=== PATIENT | female | born 1990 | race Caucasian/White ===

== ENCOUNTER 2020-08-24 10:51 | Emergency (ER) | payer OTHER, SELFPAY ==
--- NOTE | ~2020-08-24 | CT_ITS ---
EXAMINATION: CT ABDOMEN AND PELVIS WITHOUT CONTRAST CLINICAL INFORMATION: Abdominal pain. History of gastric sleeve surgery and abdominal wall hernia repair with mesh. COMPARISON: Previous CT of the abdomen and pelvis September 2019 TECHNIQUE: Multidetector volumetric imaging was performed from the superior aspect of the liver through the pubic symphysis. Sagittal and coronal reformatted images were obtained on the technologist's workstation. This CT examination was performed using dose optimization techniques as appropriate, variously including the following: *Automated exposure control *Adjustment of mA and/or kV according to patient size (this includes techniques or standardized protocols for targeted exams where dose is matched to indication/reason for exam; i.e. extremities or head) *Use of iterative reconstruction technique DLP: 1021 mGy-cm FINDINGS: LUNG BASES: The visualized lung bases are unremarkable. LIVER, GALLBLADDER, AND BILIARY TREE: The liver is normal in size, shape, and attenuation. No focal hepatic lesion or biliary ductal dilatation is present. The gallbladder has been removed. PANCREAS: The pancreas is normal-appearing. There is mild fat stranding seen in the root of the small bowel mesentery. Clinical correlation to exclude mild pancreatitis recommended. SPLEEN: Unremarkable. ADRENAL GLANDS: Unremarkable. KIDNEYS AND URETERS: The kidneys are normal in size, shape, and attenuation. No hydronephrosis, hydroureter, or calculi seen. No perinephric stranding. BLADDER: Unremarkable. GASTROINTESTINAL TRACT: The changes from gastric sleeve procedure. There is a mild wall thickening of the right colon and proximal transverse colon. This may be due to underdistention. The small and large bowel are unremarkable. The appendix is unremarkable. ABDOMINAL WALL: There are postsurgical changes following abdominal wall hernia repair with mesh. There is a small amount of fluid adjacent to the mesh similar to previous exam September 2019. There is some LYMPH NODES: Normal. VASCULAR: Unremarkable. PELVIC VISCERA: Unremarkable. OSSEOUS STRUCTURES: There is degenerative disc disease at L5-S1. CT/CT abdomen pelvis wo con IMPRESSION: Postsurgical changes from gastric sleeve procedure. Mild wall thickening of the right colon and proximal transverse colon, question artifactual due to underdistention as opposed to representing mild colitis. Mild fat stranding at the root of the small bowel mesentery. Clinical correlation to exclude to exclude mild pancreatitis. The pancreas is otherwise normal appearing. Abdominal wall hernia repair with mesh. Small amount of fluid adjacent to the mesh similar to 2020 exam.
[2020-08-24 11:25] VITALS: BP 156/83; PULSE 64; RESP 18; TEMP 36.8; O2SAT 100; BMI 35.5
--- NOTE | 2020-08-24 12:35 | ED_ITS ---
HPI - General Adult General Chief complaint: Abdominal Pain Stated complaint: ABD PAIN Time Seen by Provider: 08/24/20 11:52 Source: patient Mode of arrival: ambulatory Limitations: no limitations History of Present Illness HPI narrative: 30 y/o female with history of morbid obesity s/p gastric sleeve in January [address] [facility] in [place] who presents to the ED today with multiple complaints. She reports chronic abdominal pain since the surgery, worse at night, cramping in nature. He bowel habits have been irregular, constipated and then loose for the last 1 month. No nausea or vomiting but she reports a very poor appetite. She has no fever, chills, sick contacts, urinary symptoms. She has no new medications. She has some hair loss, low energy and feels very weak. She has 6 children and does not have the energy to keep up with them because she is not eating well. She has not seen her Bariatric Surgeon in over 1 year due to the pandemic. MD complaint: chronic abdominal pain Onset (ago): month(s) Location: abdomen Radiation: non-radiation Severity: moderate Quality: stabbing Pain Consistency: intermittent Relieving factors: none Exacerbating factors: eating Associated symptoms: loss of appetite, malaise and weakness Treatments prior to arrival: none Related Data Previous Rx's Medication Instructions Recorded ciprofloxacin HCl 500 mg PO BID #14 tab 08/24/20 dicyclomine 20 mg PO TID PRN #10 tab 08/24/20 metronidazole [Flagyl] 500 mg PO Q12H #14 tab 08/24/20 Allergies Allergy/AdvReac Type Severity Reaction Status Date / Time Penicillins [PCN] Allergy Mild RASH Unverified 12/15/19 19:52 Review of Systems Review of Systems: Constitutional: No Fever, No Chills ENT/Mouth: No sore throat, No Rhinorrhea, No Swallowing Difficulty Cardiovascular: No Chest Pain, No SOB Respiratory: No Cough, No Sputum Gastrointestinal: No Nausea, No Vomiting, + Diarrhea, + abdominal Pain, No Hematochezia, No Melena Genitourinary: No Dysuria, No Urinary Frequency, No Hematuria Musculoskeletal: No joint pain, No Myalgias Skin: No Skin Lesions, No rash Neuro: + Weakness, No Numbness, No Dizziness, No Headache Psych: + Anxiety/Panic, + Depression Heme/Lymph: No Bruising, No Lymphadenopathy Endocrine: No Polyuria, No Polydipsia [facility] Past Medical History Attestation statement: The following information was validated with the patient. Social History Social History Advance Directives: Yes Advance Directives Information Provided: Yes Advance Directives on File: No Physical Exam Vital Signs: Vital Signs: Last Vital Signs Temp 98.2 F 08/24/20 11:25 Pulse 50 08/24/20 13:32 Resp 18 08/24/20 13:32 BP 138/69 08/24/20 13:32 Pulse Ox 100 08/24/20 13:32 Body Mass Index 35.5 Appearance: Alert. Oriented X3. No acute distress. Eyes: Pupils equal, round and reactive to light. ENT: Pharynx normal. Neck: Normal inspection. Neck supple. CVS: Normal heart rate and rhythm. Pulses normal. Respiratory: No respiratory distress. Breath sounds normal. Abdomen: Moribdly obese, Soft with mild diffuse tenderness, no reboudn or guarding, no masses, no hernias.. +BS x4 Skin: Skin warm and dry. Normal skin color. Normal skin turgor. No rashes. Extremities: No lower extremity edema. Neuro: Oriented X 3. No motor deficit. No sensory deficit. Course Course Course Narrative: 30 y/o female s/p gastric sleeve 1.5 years ago presenting with acute on chronic abdominal pain for the last 1 month. Will get labs and CT scan for further evaluation. Reevaluation(s) Reevaluation #1: Labs and UA are unremarkable. CT scan showing possible mild colitis. Will start on antibiotic therapy and refer to GI. Encouraged to f/u with her Bariatric Surgery and referral given to GI. She is tolerating PO and stable for d/c home. Medical Decision Making Lab Data Result diagrams: 08/24/20 12:30 08/24/20 12:29 Labs: Lab Results 08/24/20 08/24/20 08/24/20 Range/Units 12:29 12:29 12:29 WBC (4.8-10.8) X10*3/uL RBC (4.20-5.50) X10*6/uL Hgb (12.0-16.0) g/dl Hct (37-47) % MCV (80-98) fL MCH (27.0-33.0) pg MCHC (31.0-35.0) g/dl RDW (11.0-16.0) % Plt Count (160-400) X10*3/uL MPV (9.4-12.3) fL Immature Gran % (Auto) (0.0-0.4) % Neut % (Auto) (45-73) % Lymph % (Auto) (20-40) % [place] % (Auto) (2-11) % Eos % (Auto) (0-4) % Baso % (Auto) (0-2) % Lymph # (Auto) (1.2-4.9) X10*3/uL [place] # (Auto) (0.1-1.2) X10*3/uL Eos # (Auto) (0.0-0.4) X10*3/uL Baso # (Auto) (0.0-0.2) X10*3/uL Abs Immat Gran (auto) (0.00-0.03) X10*3/uL Absolute Neuts (auto) (2.0-8.3) X10*3/uL Absolute Nucleated RBC (0.0-0.012) X10*3/uL Nucleated RBC % (auto) (0.0-0.2) /100WBC Hold Blue Top Sodium 140 (135-145) mmol/L Potassium 4.4 (3.3-5.1) mmol/L Chloride 105 (96-108) mmol/L Carbon Dioxide 27 (22-29) mmol/L Anion Gap 12 (12-20) BUN 12 (9-16) mg/dL Creatinine 0.73 (0.5-1.4) mg/dL Estim Creat Clear Calc 141.0 Estimated GFR > 60 Random Glucose 82 (60-115) mg/dL Calcium 9.0 (8.4-10.2) mg/dL Magnesium 2.1 (1.6-2.6) mg/dL Total Bilirubin 0.4 (0.0-1.0) mg/dL Direct Bilirubin 0.2 (0.0-0.5) mg/dL AST 16 (5-31) U/L ALT 17 (0-31) U/L Alkaline Phosphatase 30 L (39-117) U/L Total Protein 7.4 (6.5-8.0) g/dL Albumin 4.2 (3.5-5.0) g/dL Lipase 19 (8-78) U/L TSH 2.44 (0.32-4.0) uIU/mL Urine Color YELLOW Urine Appearance HAZY Urine pH 7.0 (5.0-8.0) Ur Specific [place] 1.010 (1.005-1.025) Urine Protein NEG (NEG-TRACE) MG/DL Urine Glucose (UA) NEG (NEG) MG/DL Urine Ketones NEG (NEG) MG/DL Urine Blood NEG (NEG) Urine Nitrite NEG (NEG) Ur Leukocyte Esterase NEG (NEG) Urine Test NEGATIVE (NEGATIVE) 08/24/20 08/24/20 Range/Units 12:30 12:30 WBC 5.1 (4.8-10.8) X10*3/uL RBC 4.56 (4.20-5.50) X10*6/uL Hgb 12.1 (12.0-16.0) g/dl Hct 37.6 (37-47) % MCV 82.5 (80-98) fL MCH 26.5 L (27.0-33.0) pg MCHC 32.2 (31.0-35.0) g/dl RDW 13.6 (11.0-16.0) % Plt Count 191 (160-400) X10*3/uL MPV 9.7 (9.4-12.3) fL Immature Gran % (Auto) 0.2 (0.0-0.4) % Neut % (Auto) 67.6 (45-73) % Lymph % (Auto) 24.5 (20-40) % [place] % (Auto) 5.7 (2-11) % Eos % (Auto) 1.4 (0-4) % Baso % (Auto) 0.6 (0-2) % Lymph # (Auto) 1.3 (1.2-4.9) X10*3/uL [place] # (Auto) 0.3 (0.1-1.2) X10*3/uL Eos # (Auto) 0.1 (0.0-0.4) X10*3/uL Baso # (Auto) 0.0 (0.0-0.2) X10*3/uL Abs Immat Gran (auto) 0.01 (0.00-0.03) X10*3/uL Absolute Neuts (auto) 3.5 (2.0-8.3) X10*3/uL Absolute Nucleated RBC 0.000 (0.0-0.012) X10*3/uL Nucleated RBC % (auto) 0.0 (0.0-0.2) /100WBC Hold Blue Top SEE NOTE Sodium (135-145) mmol/L Potassium (3.3-5.1) mmol/L Chloride (96-108) mmol/L Carbon Dioxide (22-29) mmol/L Anion Gap (12-20) BUN (9-16) mg/dL Creatinine (0.5-1.4) mg/dL Estim Creat Clear Calc Estimated GFR Random Glucose (60-115) mg/dL Calcium (8.4-10.2) mg/dL Magnesium (1.6-2.6) mg/dL Total Bilirubin (0.0-1.0) mg/dL Direct Bilirubin (0.0-0.5) mg/dL AST (5-31) U/L ALT (0-31) U/L Alkaline Phosphatase (39-117) U/L Total Protein (6.5-8.0) g/dL Albumin (3.5-5.0) g/dL Lipase (8-78) U/L TSH (0.32-4.0) uIU/mL Urine Color Urine Appearance Urine pH (5.0-8.0) Ur Specific [place] (1.005-1.025) Urine Protein (NEG-TRACE) MG/DL Urine Glucose (UA) (NEG) MG/DL Urine Ketones (NEG) MG/DL Urine Blood (NEG) Urine Nitrite (NEG) Ur Leukocyte Esterase (NEG) Urine Test (NEGATIVE) Discharge Plan Discharge Clinical Impression: Colitis Abdominal pain Qualifiers: Abdominal location: generalized Qualified Code(s): R10.84 - Generalized abdominal pain Patient Disposition: Home, Self-Care Instructions: Colitis (ED), Nutrition after Bariatric Surgery (DC) Additional Instructions: Your lab workup today was unremarkable. Your CT scan showed some possible mild inflammation of your colon. You are being started on antibiotics for this. Recommend following up with a GI doctor, number listed below. Highly recommend following up with your Bariatric Surgeon for ongoing abdominal pain. If you develop worsening abdominal pain, profuse vomiting or diarrhea come back to the ER for further evaluation. Prescriptions: New ciprofloxacin HCl 500 mg tablet 500 mg PO BID Qty: 14 RF: 0 metronidazole [Flagyl] 500 mg tablet 500 mg PO Q12H Qty: 14 RF: 0 dicyclomine 20 mg tablet 20 mg PO TID PRN (Reason: abdominal discomfort) Qty: 10 RF: 0 Referrals: Xiang Koch [Physician] - 1 week (colitis, s/p gastric sleeve 2019, irregular bowel habits, chronic abdominal pain) Interventions: ED Discharge Assessment Last Done: 08/24/20 14:54 Discharge Date/Time: 08/24/20 14:56
[2020-08-24 12:40] LABS: MANUAL DIFF FLAG NO
[2020-08-24 12:43] LABS: Basophils Percent Auto 0.6 % (0-2); Eosinophils Absolute Auto 0.1 X10*3/uL (0.0-0.4); Eosinophils Percent Auto 1.4 % (0-4); Hematocrit 37.6 % (37-47); Hemoglobin 12.1 g/dl (12.0-16.0); Imm Gran Abs Auto 0.01 X10*3/uL (0.00-0.03); Imm Gran Pct Auto 0.2 % (0.0-0.4); Lymphocytes Absolute Auto 1.3 X10*3/uL (1.2-4.9); Lymphocytes Percent Auto 24.5 % (20-40); Mean Corpuscular HGB Conc 32.2 g/dl (31.0-35.0); Mean Corpuscular Hemoglobin 26.5 pg (27.0-33.0); Mean Corpuscular Volume 82.5 fL (80-98); Mean Platelet Volume 9.7 fL (9.4-12.3); Monocytes Absolute Auto 0.3 X10*3/uL (0.1-1.2); Monocytes Percent Auto 5.7 % (2-11); Neutrophils Absolute Auto 3.5 X10*3/uL (2.0-8.3); Neutrophils Percent Auto 67.6 % (45-73); Platelet Count 191 X10*3/uL (160-400); Red Blood Count 4.56 X10*6/uL (4.20-5.50); Red Cell Distribution Width 13.6 % (11.0-16.0); White Blood Count 5.1 X10*3/uL (4.8-10.8)
[2020-08-24 12:50] LABS: Appearance Urine HAZY; Color Urine YELLOW; Glucose Urine UA NEG (NEG); Leukocyte Esterase Urine NEG (NEG); Nitrite Urine NEG (NEG); Urine Blood NEG (NEG); Urine Ketones NEG (NEG); Urine Protein NEG (NEG-TRACE)
[2020-08-24] MEDS: 0.9 % Sodium Chloride 1,000 ML 999 ML IVCONT (12:53)
[2020-08-24 13:13] LABS: Alanine Aminotransferase 17 U/L (0-31); Albumin Level 4.2 g/dL (3.5-5.0); Alkaline Phosphatase 30 U/L (39-117); Anion Gap 12 (12-20); Aspartate Amino Transferase 16 U/L (5-31); Bilirubin Direct 0.2 mg/dL (0.0-0.5); Bilirubin Total 0.4 mg/dL (0.0-1.0); Blood Urea Nitrogen 12 mg/dL (9-16); Carbon Dioxide 27 mmol/L (22-29); Chloride 105 mmol/L (96-108); Estimated Glomerular Filt Rate > 60; Glucose Random 82 mg/dL (60-115); Magnesium 2.1 mg/dL (1.6-2.6); Potassium 4.4 mmol/L (3.3-5.1); Sodium 140 mmol/L (135-145); Total Protein 7.4 g/dL (6.5-8.0)
[2020-08-24 13:32] VITALS: BP 138/69; PULSE 50; RESP 18; O2SAT 100
[2020-08-24 13:34] LABS: TSH reflex Free T4 2.44 uIU/mL (0.32-4.0)
[2020-08-24 13:41] LABS: UPreg QC Valid YES; Urine Pregnancy NEGATIVE (NEGATIVE)
[2020-08-24 14:26] LABS: Lipase 19 U/L (8-78)
== END 2020-08-24 14:56 | disposition home or self-care (01) ==
PROVIDERS: Physician Assistant; Emergency Provider Emergency Medicine; PCP Nurse Practitioner Family
DX: K52.9 Noninfective gastroenteritis and colitis, unspecified (principal); G89.29 Other chronic pain; R10.84 Generalized abdominal pain; Z98.84 Bariatric surgery status
CPT/HCPCS: 36415; 74176; 80048; 80076; 81003; 81025; 83690; 83735; 84443; 85025; 96360; 99284

== ENCOUNTER 2020-09-20 12:36 | Emergency (ER) | payer OTHER, SELFPAY ==
[2020-09-20] VITALS (8 sets, daily range): BP systolic 109–167; BP diastolic 67–92; PULSE 46–61; RESP 12–20; TEMP 36.9–37.2; O2SAT 99–100; BMI 34.9
--- NOTE | 2020-09-20 | ECG_ITS ---
Test Reason : DIZZINESS Blood Pressure : / mmHG Vent. Rate : 050 BPM Atrial Rate : 050 BPM P-R Int : 144 ms QRS Dur : 082 ms QT Int : 416 ms P-R-T Axes : 046 027 022 degrees QTc Int : 379 ms Sinus bradycardia Otherwise normal ECG No previous ECGs available Referred By: Generic ED Physician Electronically Signed By:Bladimir Gomez
--- NOTE | 2020-09-20 15:27 | ED_ITS ---
HPI - Abdominal Pain General Chief Complaint: Dizziness Stated Complaint: dizzy, colitus Time Seen by Provider: 09/20/20 15:02 Source: patient Mode of arrival: ambulatory History of Present Illness HPI narrative: 30-year-old female with a PMHX of obesity s/p gastric sleeve in January 2019, chronic abdominal pain presenting to the ED c/o p ersistent/worsening diarrhea since using bowel prep/GoLYTELY for scheduled hysterectomy that was canceled today. Believes previously diagnosed colitis from 08/24 when patient was see in our ED has not subsided. Admits diarrhea improved initially however recently worsened, and then exacerbated more after bowel prep. Admits felt lightheaded this morning upon ED arrival, and was on clear liquid diet since yesterday. Admits to symptomatic improvement at present. Denies suspicious food intake, recent antibiotic, fever, chills, nausea/vomiting, dysuria/hematuria, bloody/black stool MD elicited complaint: abdominal pain Related Data Previous Rx's Medication Instructions Recorded ciprofloxacin HCl 500 mg PO BID #14 tab 08/24/20 dicyclomine 20 mg PO TID PRN #10 tab 08/24/20 metronidazole [Flagyl] 500 mg PO Q12H #14 tab 08/24/20 dicyclomine 20 mg PO QID PRN #14 tab 09/20/20 Allergies Allergy/AdvReac Type Severity Reaction Status Date / Time Penicillins [PCN] Allergy Mild RASH Verified 09/20/20 13:38 Review of Systems Review of Systems Constitutional: No Fever, No Chills, No Night Sweats, No Fatigue, No Malaise Cardiovascular: No Chest Pain, No SOB Respiratory: No Cough, No Dyspnea Gastrointestinal: No Nausea, No Vomiting, + Diarrhea, No Constipation, + Abdominal pain, No Hematochezia, No Melena Genitourinary: No irregular bleeding, No Dysuria, No Urinary Frequency, No Hematuria, No Urgency, No Flank Pain Musculoskeletal: No joint pain, No Myalgias, No Joint Swelling Skin: No Skin Lesions, No rash Neuro: No Weakness, No Numbness, + lightheadedness (resolved) No Dizziness, No Headache Yes all other systems are reviewed and are negative Physical Exam Vital Signs: Vital Signs: Last Vital Signs Temp 98.9 F 09/20/20 15:10 Pulse 61 06/24/21 16:48 Resp 12 09/20/20 16:45 BP 150/83 H 09/20/20 16:48 Pulse Ox 100 09/20/20 16:45 Body Mass Index 34.9 Const: General: cooperative, healthy appearing and no acute distress Orientation/consciousness: patient oriented x3 Limitations: no limitations HENMT: Ears: hearing grossly normal bilaterally General nose exam: Normal external nose present Face and sinus: Yes normal facial exam Eyes: General: appearance normal, both eyes and all related structures EOM: EOMs intact bilaterally Neck: Neck: Yes normal visual inspection Resp: Effort & Inspection: normal respiratory effort, not labored and no respi ratory distress Cardio: Rate: regular rate GI: Inspection: Yes normal to inspection Palpation (GI): Soft to palpation, nontender, no guarding and not rigid : General: Yes no CVA tenderness Back/Spine/Pelvis: Back: no CVA tenderness Skin: Rashes: no rashes Wounds: no wounds Neuro: General: patient oriented x3 Gait exam (Neuro): Normal gait present Extrem: General: Yes normal to inspection Course Course Course Narrative: -chronic leukopenia, labs otherwise unremarkable/at patient's baseline, UA negative -Stool leukocytes negative -1653--orthostatic vital signs negative --1700--ED care transferred to [facility] Bill pending C diff results MDM - Abdominal Pain MDM Narrative Medical decision making narrative: 30-year-old female with a PMHX of obesity s/p gastric sleeve in January 2019, chronic abdominal pain presenting to the ED c/o persistent/worsening diarrhea since using bowel prep/GoLYTELY for scheduled hysterectomy that was canceled today. On exam VSS, NAD, nontoxic appearing, abdomen soft and nontender. Concern for diarrhea secondary to GoLYTELY vs dehydration vs metabolic abnormalities. Lower concern for colitis/appendicitis/diverticulitis attempts on exam. Rule out infectious etiology Plan: Labs, UA, IVF, stool studies, symptomatic treatment, reassess Lab Data Result diagrams: 09/20/20 15:44 09/20/20 15:44 Labs: Lab Results 09/20/20 09/20/20 09/20/20 Range/Units 15:44 15:44 15:57 WBC 4.1 L (4.8-10.8) X10*3/uL RBC 4.68 (4.20-5.50) X10*6/uL Hgb 12.6 (12.0-16.0) g/dl Hct 38.7 (37-47) % MCV 82.7 (80-98) fL MCH 26.9 L (27.0-33.0) pg MCHC 32.6 (31.0-35.0) g/dl RDW 14.1 (11.0-16.0) % Plt Count 186 (160-400) X10*3/uL MPV 10.3 (9.4-12.3) fL Immature Gran % (Auto) 0.2 (0.0-0.4) % Neut % (Auto) 65.2 (45-73) % Lymph % (Auto) 27.3 (20-40) % [place] % (Auto) 4.4 (2-11) % Eos % (Auto) 2.2 (0-4) % Baso % (Auto) 0.7 (0-2) % Lymph # (Auto) 1.1 L (1.2-4.9) X10*3/uL [place] # (Auto) 0.2 (0.1-1.2) X10*3/uL Eos # (Auto) 0.1 (0.0-0.4) X10*3/uL Baso # (Auto) 0.0 (0.0-0.2) X10*3/uL Abs Immat Gran (auto) 0.01 (0.00-0.03) X10*3/uL Absolute Neuts (auto) 2.7 (2.0-8.3) X10*3/uL Absolute Nucleated RBC 0.000 (0.0-0.012) X10*3/uL Nucleated RBC % (auto) 0.0 (0.0-0.2) /100WBC Sodium 140 (135-145) mmol/L Potassium 4.6 (3.3-5.1) mmol/L Chloride 107 (96-108) mmol/L Carbon Dioxide 27 (22-29) mmol/L Anion Gap 11 L (12-20) BUN 7 L (9-16) mg/dL Creatinine 0.66 (0.5-1.4) mg/dL Estim Creat Clear Calc 154.6 Estimated GFR > 60 Random Glucose 78 (60-115) mg/dL Calcium 9.0 (8.4-10.2) mg/dL Magnesium 2.0 (1.6-2.6) mg/dL Total Bilirubin 0.5 (0.0-1.0) mg/dL Direct Bilirubin 0.2 (0.0-0.5) mg/dL AST 19 (5-31) U/L ALT 14 (0-31) U/L Alkaline Phosphatase 30 L (39-117) U/L Total Protein 7.2 (6.5-8.0) g/dL Albumin 3.9 (3.5-5.0) g/dL Lipase 28 (8-78) U/L Urine Color Urine Appearance Urine pH (5.0-8.0) Ur Specific [place] (1.005-1.025) Urine Protein (NEG-TRACE) MG/DL Urine Glucose (UA) (NEG) MG/DL Urine Ketones (NEG) MG/DL Urine Blood (NEG) Urine Nitrite (NEG) Ur Leukocyte Esterase (NEG) Stool Leukocytes, Qual NEGATIVE (NEGATIVE) 09/20/20 Range/Units 15:58 WBC (4.8-10.8) X10*3/uL RBC (4.20-5.50) X10*6/uL Hgb (12.0-16.0) g/dl Hct (37-47) % MCV (80-98) fL MCH (27.0-33.0) pg MCHC (31.0-35.0) g/dl RDW (11.0-16.0) % Plt Count (160-400) X10*3/uL MPV (9.4-12.3) fL Immature Gran % (Auto) (0.0-0.4) % Neut % (Auto) (45-73) % Lymph % (Auto) (20-40) % [place] % (Auto) (2-11) % Eos % (Auto) (0-4) % Baso % (Auto) (0-2) % Lymph # (Auto) (1.2-4.9) X10*3/uL [place] # (Auto) (0.1-1.2) X10*3/uL Eos # (Auto) (0.0-0.4) X10*3/uL Baso # (Auto) (0.0-0.2) X10*3/uL Abs Immat Gran (auto) (0.00-0.03) X10*3/uL Absolute Neuts (auto) (2.0-8.3) X10*3/uL Absolute Nucleated RBC (0.0-0.012) X10*3/uL Nucleated RBC % (auto) (0.0-0.2) /100WBC Sodium (135-145) mmol/L Potassium (3.3-5.1) mmol/L Chloride (96-108) mmol/L Carbon Dioxide (22-29) mmol/L Anion Gap (12-20) BUN (9-16) mg/dL Creatinine (0.5-1.4) mg/dL Estim Creat Clear Calc Estimated GFR Random Glucose (60-115) mg/dL Calcium (8.4-10.2) mg/dL Magnesium (1.6-2.6) mg/dL Total Bilirubin (0.0-1.0) mg/dL Direct Bilirubin (0.0-0.5) mg/dL AST (5-31) U/L ALT (0-31) U/L Alkaline Phosphatase (39-117) U/L Total Protein (6.5-8.0) g/dL Albumin (3.5-5.0) g/dL Lipase (8-78) U/L Urine Color YELLOW Urine Appearance CLEAR Urine pH 6.0 (5.0-8.0) Ur Specific [place] 1.010 (1.005-1.025) Urine Protein NEG (NEG-TRACE) MG/DL Urine Glucose (UA) NEG (NEG) MG/DL Urine Ketones NEG (NEG) MG/DL Urine Blood NEG (NEG) Urine Nitrite NEG (NEG) Ur Leukocyte Esterase NEG (NEG) Stool Leukocytes, Qual (NEGATIVE) Discharge Plan Discharge Clinical Impression: Diarrhea Instructions: Acute Diarrhea (ED) Additional Instructions: Your blood work is reassuring today in the emergency department Her stool did not show any white blood cells It is very important that you follow-up with your primary care doctor as well as a GI doctor Stay hydrated at home Bentyl will help with abdominal discomfort If your abdominal pain or diarrhea persists or worsens, you develop fever, you are unable to eat or drink please return to the ED Prescriptions: New dicyclomine 20 mg tablet 20 mg PO QID PRN (Reason: abdominal discomfort) Qty: 14 RF: 0 No Action ciprofloxacin HCl 500 mg tablet 500 mg PO BID Qty: 14 RF: 0 metronidazole [Flagyl] 500 mg tablet 500 mg PO Q12H Qty: 14 RF: 0 dicyclomine 20 mg tablet 20 mg PO TID PRN (Reason: abdominal discomfort) Qty: 10 RF: 0 Referrals: Xiang Koch [Physician] - 1 week [facility] Social History Social History Patient Tobacco Use Status: Never used Tobacco Use of substances other than those prescribed or required for medical reasons: No Advance Directives: Yes Advance Directives Information Provided: Yes Advance Directives on File: No Patient : No
[2020-09-20 15:49] LABS: MANUAL DIFF FLAG NO
[2020-09-20 15:57] LABS: Basophils Percent Auto 0.7 % (0-2); Eosinophils Absolute Auto 0.1 X10*3/uL (0.0-0.4); Eosinophils Percent Auto 2.2 % (0-4); Hematocrit 38.7 % (37-47); Hemoglobin 12.6 g/dl (12.0-16.0); Imm Gran Abs Auto 0.01 X10*3/uL (0.00-0.03); Imm Gran Pct Auto 0.2 % (0.0-0.4); Lymphocytes Absolute Auto 1.1 X10*3/uL (1.2-4.9); Lymphocytes Percent Auto 27.3 % (20-40); Mean Corpuscular HGB Conc 32.6 g/dl (31.0-35.0); Mean Corpuscular Hemoglobin 26.9 pg (27.0-33.0); Mean Corpuscular Volume 82.7 fL (80-98); Mean Platelet Volume 10.3 fL (9.4-12.3); Monocytes Absolute Auto 0.2 X10*3/uL (0.1-1.2); Monocytes Percent Auto 4.4 % (2-11); Neutrophils Absolute Auto 2.7 X10*3/uL (2.0-8.3); Neutrophils Percent Auto 65.2 % (45-73); Platelet Count 186 X10*3/uL (160-400); Red Blood Count 4.68 X10*6/uL (4.20-5.50); Red Cell Distribution Width 14.1 % (11.0-16.0); White Blood Count 4.1 X10*3/uL (4.8-10.8)
[2020-09-20] MEDS: 0.9 % Sodium Chloride 1,000 ML 999 ML IVCONT (15:59)
[2020-09-20 16:08] LABS: Glucose Urine UA NEG (NEG); Leukocyte Esterase Urine NEG (NEG); Nitrite Urine NEG (NEG); Urine Blood NEG (NEG); Urine Ketones NEG (NEG); Urine Protein NEG (NEG-TRACE)
[2020-09-20 16:09] LABS: Appearance Urine CLEAR; Color Urine YELLOW
[2020-09-20 16:20] LABS: Alanine Aminotransferase 14 U/L (0-31); Albumin Level 3.9 g/dL (3.5-5.0); Alkaline Phosphatase 30 U/L (39-117); Anion Gap 11 (12-20); Aspartate Amino Transferase 19 U/L (5-31); Bilirubin Direct 0.2 mg/dL (0.0-0.5); Bilirubin Total 0.5 mg/dL (0.0-1.0); Blood Urea Nitrogen 7 mg/dL (9-16); Carbon Dioxide 27 mmol/L (22-29); Chloride 107 mmol/L (96-108); Creatinine Clr Calc Pharmacy 154.6; Estimated Glomerular Filt Rate > 60; Glucose Random 78 mg/dL (60-115); Lipase 28 U/L (8-78); Potassium 4.6 mmol/L (3.3-5.1); Sodium 140 mmol/L (135-145); Total Protein 7.2 g/dL (6.5-8.0)
[2020-09-20 16:37] LABS: Leukocytes Stool Qualitative NEGATIVE (NEGATIVE)
[2020-09-20] MEDS: Dicyclomine HCl 10 MG CAPSULE 20 MG PO (16:51)
[2020-09-20 17:47] LABS: CDiff Gene PCR NEGATIVE (Negative)
== END 2020-09-20 18:39 | disposition home or self-care (01) ==
PROVIDERS: Physician Assistant; Physician Assistant Medical; Emergency Provider Emergency Medicine
DX: R19.7 Diarrhea, unspecified (principal); R42 Dizziness and giddiness; D72.819 Decreased white blood cell count, unspecified; Z98.84 Bariatric surgery status
CPT/HCPCS: 36415; 80048; 80076; 81003; 83690; 83735; 85025; 87045; 87046; 87077; 87493; 89055; 93005; 96360; 99284; 99285

== ENCOUNTER → 2020-10-02 10:59 | Outpatient (BNVA) | payer OTHER, SELFPAY | PROVIDERS: Visit Provider Internal Medicine Gastroenterology | DX: R10.13 Epigastric pain (principal) | CPT/HCPCS: 99202 ==

== ENCOUNTER 2022-01-16 10:22 | Emergency (ER) | payer OTHER, SELFPAY ==
--- NOTE | 2022-01-16 | ECG_ITS ---
Test Reason : chest pain Blood Pressure : / mmHG Vent. Rate : 050 BPM Atrial Rate : 050 BPM P-R Int : 138 ms QRS Dur : 076 ms QT Int : 410 ms P-R-T Axes : 043 028 023 degrees QTc Int : 373 ms Sinus bradycardia Otherwise normal ECG When compared with ECG of 20-SEP-2020 13:52, No significant change was found Referred By: Alpesh Foreman Electronically Signed By:ARMAND LOVE MD
--- NOTE | ~2022-01-16 | XR_ITS ---
EXAMINATION: XR CHEST CLINICAL INFORMATION: Chest pain COMPARISON: None TECHNIQUE: 2 views of the chest were obtained. FINDINGS: No significant abnormality is noted involving the heart, lungs, mediastinum, bony thorax or soft tissues. XR/XR chest 2V IMPRESSION: Unremarkable examination.
[2022-01-16 10:38] VITALS: BP 148/87; PULSE 52; RESP 20; TEMP 36.1; O2SAT 99; BMI 34.9
[2022-01-16 11:17] LABS: Troponin-I High Sensitivity < 3.5 ng/L (<3.5-17.0)
[2022-01-16 15:36] VITALS: BP 129/83; PULSE 55; RESP 14; TEMP 36.6; O2SAT 100
[2022-01-16 18:26] LABS: MANUAL DIFF FLAG NO
[2022-01-16 18:27] LABS: Basophils Percent Auto 0.7 % (0-2); Eosinophils Absolute Auto 0.1 X10*3/uL (0.0-0.4); Eosinophils Percent Auto 2.1 % (0-4); Hematocrit 42.6 % (37.0-47.0); Imm Gran Abs Auto 0.01 X10*3/uL (0.00-0.03); Imm Gran Pct Auto 0.2 % (0.0-0.4); Lymphocytes Absolute Auto 1.5 X10*3/uL (1.2-4.9); Lymphocytes Percent Auto 34.7 % (20-40); Mean Corpuscular HGB Conc 32.9 g/dl (31.0-35.0); Mean Corpuscular Hemoglobin 28.4 pg (27.0-33.0); Mean Corpuscular Volume 86.4 fL (80.0-98.0); Mean Platelet Volume 9.2 fL (9.4-12.3); Monocytes Absolute Auto 0.2 X10*3/uL (0.1-1.2); Monocytes Percent Auto 4.7 % (2-11); Neutrophils Absolute Auto 2.5 x10*3/uL (2.0-8.3); Neutrophils Percent Auto 57.6 % (45-73); Platelet Count 191 X10*3/uL (160-400); Red Blood Count 4.93 X10*6/uL (4.20-5.50); Red Cell Distribution Width 12.9 % (11.0-16.0); White Blood Count 4.3 X10*3/uL (4.8-10.8)
[2022-01-16 18:34] LABS: D Dimer High Sensitivity 194 NG/ML
[2022-01-16 18:42] LABS: Alanine Aminotransferase 12 U/L (0-31); Albumin Level 4.3 g/dL (3.5-5.0); Alkaline Phosphatase 30 U/L (39-117); Anion Gap 16 (12-20); Aspartate Amino Transferase 17 U/L (5-31); Bilirubin Total 0.6 mg/dL (0.0-1.0); Blood Urea Nitrogen 11 mg/dL (9-16); Calcium 9.5 mg/dL (8.4-10.2); Carbon Dioxide 26 mmol/L (22-29); Chloride 103 mmol/L (96-108); Creatinine Clr Calc Pharmacy 138.6; Estimated Glomerular Filt Rate > 60; Glucose Random 81 mg/dL (60-115); Magnesium 1.9 mg/dL (1.6-2.6); Potassium 4.8 mmol/L (3.3-5.1); Sodium 140 mmol/L (135-145); Total Protein 7.9 g/dL (6.5-8.0)
[2022-01-16 18:46] LABS: Troponin-I High Sensitivity < 3.5 ng/L (<3.5-17.0)
--- NOTE | 2022-01-16 20:12 | ED.CHESTPAIN ---
HPI - Chest Pain General Chief Complaint: Chest Pain Stated Complaint: Chest Pain x 1 Week Time Seen by Provider: 01/16/22 19:53 Source: patient Mode of arrival: ambulatory Limitations: no limitations History of Present Illness HPI narrative: This is a 31-year-old female with history of anxiety who presents with intermittent chest pain for the last 1 week. Pain is worsened with deep breathing. Patient denies any exertional pain. No associated cough, fever, shortness of breath, dizziness, palpitations, leg swelling or leg pain. No recent travel or sick contact. No history DVT or PE. No OCP use Related Data Home Medications Medication Instructions Recorded Confirmed ferrous sulfate 325 mg (65 mg 325 mg PO BID 10/02/20 02/19/21 iron) tablet,delayed release multivitamin (Daily Multi-Vitamin 1 tab PO DAILY 10/02/20 02/19/21 tablet) sertraline 100 mg tablet 100 mg PO DAILY 10/02/20 02/19/21 sertraline 50 mg tablet 50 mg PO DAILY 10/02/20 02/19/21 Previous Rx's Medication Instructions Recorded dicyclomine 20 mg tablet 20 mg PO QID PRN abdominal 09/20/20 discomfort #14 tabs peg-electrolyte solution 420 gram 240 ml PO Q10M #4,000 mL 10/02/20 oral solution (TriLyte With Flavor Packets) bisacodyl 5 mg tablet,delayed 10 mg PO ONCE Bowel Preparation 1 10/03/20 release (Dulcolax (bisacodyl)) day #2 tabs polyethylene glycol 3350 17 238 g PO ONCE 1 day #238 grams 10/03/20 gram/dose oral powder (Miralax) Allergies Allergy/AdvReac Type Severity Reaction Status Date / Time Penicillins [PCN] Allergy Mild RASH Verified 10/02/20 11:12 Review of Systems Review of Systems: Yes all other systems are reviewed and are negative Constitutional: Constitutional: Reports no additional constitutional complaints, Denies body ache(s), Denies chills, Denies fever(s), Denies headache(s) and Denies weakness Eyes: Eyes: Reports no additional eye complaints and Denies change in vision ENT: Reports system reviewed and no additional complaints, except as documented, Denies dizziness, Denies headache(s), Denies nasal congestion, Denies nasal discharge and Denies neck pain Cardiovascular: Cardiovascular: Reports no additional cardiovascular complaints, Reports chest pain, Denies leg edema and Denies dyspnea Respiratory: Respiratory: Reports no additional respiratory complaints, Denies cough and Denies dyspnea Gastrointestinal: Gastrointestinal: Reports no additional gastrointestinal complaints, Denies abdominal pain, Denies diarrhea, Denies nausea and Denies vomiting Genitourinary: Genitourinary: Reports no additional female genitourinary complaints and Denies urinary incontinence Musculoskeletal: Musculoskeletal: Reports no additional musculoskeletal complaints, Denies back pain, Denies arthralgias, Denies joint swelling, Denies neck pain, Denies numbness and Denies tingling Integumentary/Breasts: Skin/Breast: Reports system reviewed and no additional complaints, except as docu and Denies rash Neurologic: Reports system reviewed and no additional complaints, except as documented, Denies Abnormal speech present, Denies dizziness, Denies headache(s), Denies numbness, Denies tingling and Denies weakness PMFSH Past Medical History Attestation statement: The following information was validated with the patient. Source: old records reviewed and nursing notes reviewed Medical History Anxiety Arthritis COVID-19 vaccine series completed Depression Family history of DVT Surgical History History of endometrial ablation History of sleeve gastrectomy Hx of cholecystectomy Hx of tubal ligation Hx of umbilical hernia repair Social History Social History Are you a primary career technical education teacher to a significant other at home: No Do you presently have visiting nurse or other home services: No Patient Tobacco Use Status: Never used Tobacco Advance Directives: No Advance Directives Information Provided: No Physical Exam Vital Signs: Vital Signs: Last Vital Signs Temp 98 F 01/16/22 15:36 Pulse 50 01/16/22 21:12 Resp 17 01/16/22 21:12 BP 118/74 01/16/22 21:12 Pulse Ox 100 01/16/22 21:12 O2 Del Method 01/16/22 21:12 BMI result Body Mass Index 34.9 Const: General: cooperative, healthy appearing, comfortable and no acute distress Orientation/consciousness: patient oriented x3 Limitations: no limitations HEENT: Head: Yes normal to inspection Ears: hearing grossly normal bilaterally General nose exam: Normal external nose present Face and sinus: Yes normal facial exam Mouth: Normal oral and palatal mucosa present Throat: Yes posterior oropharynx normal Eyes: General: appearance normal, both eyes and all related structures Pupils: Equal, round and reactive pupils present Neck: Neck: Yes normal visual inspection Chest: Chest palpation & inspection: normal inspection of the chest Resp: Effort & Inspection: normal respiratory effort Auscultation: clear to auscultation bilaterally Cardio: Rate: regular rate Rhythm: regular rhythm Peripheral pulses: Peripheral pulses 2+ throughout GI: Inspection: Yes normal to inspection Palpation (GI): Soft to palpation and nontender Auscultation: normal bowel sounds Back/Spine/Pelvis: Thoracic/Lumbar Spine: thoracic and lumbar spine normal to inspection Skin: General skin exam: no rashes or lesions noted Neuro: General: patient oriented x3, no focal motor deficits and normal sensation to monofilament Cranial nerves: Yes Equal, round and reactive pupils present Cognition (Neuro): normal cognition Speech: No Abnormal speech present Gait exam (Neuro): Normal gait present Motor exam (neuro): 5/5 motor strength present throughout Extrem: General: Yes normal to inspection, Yes no pedal edema and Yes no calf tenderness Course Course Course Narrative: EKG should be changed. Labs are unremarkable. Chest x-ray is negative for any underlying infection. Patient will be discharged home with follow-up with primary care. Reviewed worrisome signs and symptoms of when to return to the emergency room. Comfortable discharge home. MDM - Chest Pain MDM Narrative Medical decision making narrative: 31-year-old female who with pleuritic chest pain for the last 1 week. Will obtain labs, EKG, chest x-ray Consider ACS. Less likely with negative troponin EKG with heart score 0. Consider PE Medical Records Data Attestation: I reviewed the patient's medical records. Lab Data Attestation: I reviewed the patient's lab results. Result diagrams: 01/16/22 18:22 01/16/22 18:22 Labs: Lab Results 01/16/22 01/16/22 01/16/22 Range/Units 10:44 18:22 18:22 WBC 4.3 L (4.8-10.8) X10*3/uL RBC 4.93 (4.20-5.50) X10*6/uL Hgb 14.0 (12.0-16.0) g/dl Hct 42.6 (37.0-47.0) % MCV 86.4 (80.0-98.0) fL MCH 28.4 (27.0-33.0) pg MCHC 32.9 (31.0-35.0) g/dl RDW 12.9 (11.0-16.0) % Plt Count 191 (160-400) X10*3/uL MPV 9.2 L (9.4-12.3) fL Immature Gran % (Auto) 0.2 (0.0-0.4) % Neut % (Auto) 57.6 (45-73) % Lymph % (Auto) 34.7 (20-40) % [place] % (Auto) 4.7 (2-11) % Eos % (Auto) 2.1 (0-4) % Baso % (Auto) 0.7 (0-2) % Lymph # (Auto) 1.5 (1.2-4.9) X10*3/uL [place] # (Auto) 0.2 (0.1-1.2) X10*3/uL Eos # (Auto) 0.1 (0.0-0.4) X10*3/uL Baso # (Auto) 0.0 (0.0-0.2) X10*3/uL Abs Immat Gran (auto) 0.01 (0.00-0.03) X10*3/uL Absolute Neuts (auto) 2.5 (2.0-8.3) x10*3/uL Absolute Nucleated RBC 0.000 (0.0-0.012) X10*3/uL Nucleated RBC % (auto) 0.0 (0.0-0.2) /100WBC D-Dimer High Sensitivty NG/ML Sodium 140 (135-145) mmol/L Potassium 4.8 (3.3-5.1) mmol/L Chloride 103 (96-108) mmol/L Carbon Dioxide 26 (22-29) mmol/L Anion Gap 16 (12-20) BUN 11 (9-16) mg/dL Creatinine 0.73 (0.5-1.4) mg/dL Estim Creat Clear Calc 138.6 Estimated GFR > 60 Random Glucose 81 (60-115) mg/dL Calcium 9.5 (8.4-10.2) mg/dL Magnesium 1.9 (1.6-2.6) mg/dL Total Bilirubin 0.6 (0.0-1.0) mg/dL AST 17 (5-31) U/L ALT 12 (0-31) U/L Alkaline Phosphatase 30 L (39-117) U/L Troponin I High Sens < 3.5 (<3.5-17.0) ng/L Total Protein 7.9 (6.5-8.0) g/dL Albumin 4.3 (3.5-5.0) g/dL 01/16/22 01/16/22 Range/Units 18:22 18:22 WBC (4.8-10.8) X10*3/uL RBC (4.20-5.50) X10*6/uL Hgb (12.0-16.0) g/dl Hct (37.0-47.0) % MCV (80.0-98.0) fL MCH (27.0-33.0) pg MCHC (31.0-35.0) g/dl RDW (11.0-16.0) % Plt Count (160-400) X10*3/uL MPV (9.4-12.3) fL Immature Gran % (Auto) (0.0-0.4) % Neut % (Auto) (45-73) % Lymph % (Auto) (20-40) % [place] % (Auto) (2-11) % Eos % (Auto) (0-4) % Baso % (Auto) (0-2) % Lymph # (Auto) (1.2-4.9) X10*3/uL [place] # (Auto) (0.1-1.2) X10*3/uL Eos # (Auto) (0.0-0.4) X10*3/uL Baso # (Auto) (0.0-0.2) X10*3/uL Abs Immat Gran (auto) (0.00-0.03) X10*3/uL Absolute Neuts (auto) (2.0-8.3) x10*3/uL Absolute Nucleated RBC (0.0-0.012) X10*3/uL Nucleated RBC % (auto) (0.0-0.2) /100WBC D-Dimer High Sensitivty 194 NG/ML Sodium (135-145) mmol/L Potassium (3.3-5.1) mmol/L Chloride (96-108) mmol/L Carbon Dioxide (22-29) mmol/L Anion Gap (12-20) BUN (9-16) mg/dL Creatinine (0.5-1.4) mg/dL Estim Creat Clear Calc Estimated GFR Random Glucose (60-115) mg/dL Calcium (8.4-10.2) mg/dL Magnesium (1.6-2.6) mg/dL Total Bilirubin (0.0-1.0) mg/dL AST (5-31) U/L ALT (0-31) U/L Alkaline Phosphatase (39-117) U/L Troponin I High Sens < 3.5 (<3.5-17.0) ng/L Total Protein (6.5-8.0) g/dL Albumin (3.5-5.0) g/dL Imaging Data Chest x-ray: Attestation: I personally reviewed and interpreted this imaging study as follows: Radiologist's impression: [place] [id number] XRay Report Signed Patient: Rosi Benavidez MR#: [id number] : 1990 Acct:[id number] Age/Sex: 31 / F ADM Date: 01/16/22 Loc: .ED Attending Dr: Ordering Physician: An Cervantes NP Date of Service: 01/16/22 Procedure(s): XR chest 2V Accession Number(s): [id number] cc: An Cervantes NP~ EXAMINATION: XR CHEST CLINICAL INFORMATION: Chest pain COMPARISON: None TECHNIQUE: 2 views of the chest were obtained. FINDINGS: No significant abnormality is noted involving the heart, lungs, mediastinum, bony thorax or soft tissues. XR/XR chest 2V IMPRESSION: Unremarkable examination. ECG Data ECG #1: Attestation: I personally reviewed and interpreted this ECG as follows: ECG interpretation date: 01/16/22 ECG interpretation time: 10:35 Interpretation: Sinus bradycardia with rate 50, normal [place], normal QRS, normal QT Discharge Plan Discharge Clinical Impression: Chest pain Patient Disposition: Home, Self-Care Instructions: Chest Pain (ED) Additional Instructions: Your lab work, x-ray and EKG are reassuring Follow-up with your primary care doctor as discussed Return for any worsening symptoms Prescriptions: No Action bisacodyl [Dulcolax (bisacodyl)] 5 mg tablet,delayed release (DR/EC) 10 mg PO ONCE 1 Days Qty: 2 0RF Rx Instructions: Take 2 tablets at 12:00pm the day before your procedure, bowel prep polyethylene glycol 3350 [Miralax] 17 gram/dose powder 238 g PO ONCE 1 Days Qty: 238 0RF Rx Instructions: Take as directed by mouth, bowel prep dicyclomine 20 mg tablet 20 mg PO QID PRN (Reason: abdominal discomfort) Qty: 14 0RF sertraline 50 mg tablet 50 mg PO DAILY sertraline 100 mg tablet 100 mg PO DAILY ferrous sulfate 325 mg (65 mg iron) tablet,delayed release (DR/EC) 325 mg PO BID multivitamin [Daily Multi-Vitamin] Tablet 1 tab PO DAILY peg-electrolyte soln [TriLyte With Flavor Packets] 420 gram recon soln 240 ml PO Q10M Qty: 4000 0RF Rx Instructions: until fecal effluent is clear; do not exceed a total volume of 2,000 mL Referrals: Allan Israel FNP [Primary Care Provider] - 5 days Stand Alone Forms: Work/School Release Interventions: ED Discharge Assessment Last Done: 01/16/22 21:22 Discharge Date/Time: 01/16/22 21:23
[2022-01-16 21:12] VITALS: BP 118/74; PULSE 50; RESP 17; O2SAT 100
--- NOTE | 2022-01-16 21:19 | PC.NURSE ---
pt a&o, no sob or chest pain. pt denies any distress. Review discharge instruction and pt verbalized understanding.
== END 2022-01-16 21:23 | disposition home or self-care (01) ==
PROVIDERS: Emergency Medicine; Emergency Provider Emergency Medicine; PCP Nurse Practitioner Family
DX: R07.89 Other chest pain (principal); F41.1 Generalized anxiety disorder; F43.0 Acute stress reaction; R06.02 Shortness of breath; Z79.899 Other long term (current) drug therapy
CPT/HCPCS: 36415; 71046; 80053; 83735; 84484; 85025; 85379; 93005; 99283; 99284

== ENCOUNTER 2023-10-16 19:14 | Emergency (ER) | payer OTHER, SELFPAY ==
--- NOTE | ~2023-10-16 | XR_ITS ---
EXAMINATION: XR RIBS, RIGHT CLINICAL INFORMATION: Pain. COMPARISON: Chest radiograph dated 01/16/2022. TECHNIQUE: 4 views of the right ribs were obtained. FINDINGS: Lungs are clear. No consolidation, pneumothorax, or pleural effusion. The cardiomediastinal silhouette and pulmonary vasculature are normal. Osseous structures are unremarkable. Ribs are intact. No fractures are identified. XR/XR ribs RT min 3V w CXR1V IMPRESSION: No acute cardiopulmonary disease. No right rib fracture.
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
[2023-10-16 19:49] VITALS: BP 132/75; PULSE 67; RESP 16; TEMP 36.2; O2SAT 100; BMI 36.1
[2023-10-16 22:10] VITALS: BP 132/75; PULSE 67; RESP 16; TEMP 36.2; O2SAT 100
== END 2023-10-16 22:11 | disposition home or self-care (01) ==
PROVIDERS: Emergency Provider Emergency Medicine; PCP Internal Medicine
DX: S20.211A Contusion of right front wall of thorax, initial encounter (principal); W22.8XXA Striking against or struck by other objects, initial encounter; Y93.I1 Activity, roller coaster riding; Y92.831 Amusement park as the place of occurrence of the external cause; Y99.9 Unspecified external cause status
CPT/HCPCS: 71101; 99282; 99283

== ENCOUNTER 2024-04-17 11:11 | Emergency (ER) | payer OTHER, SELFPAY ==
[2024-04-17 11:22] VITALS: BP 150/91; PULSE 73; RESP 18; TEMP 36.9; O2SAT 100; BMI 34.6
--- NOTE | 2024-04-17 11:22 | ED.GENADULT ---
HPI - General Adult General Chief complaint: General Medical Stated complaint: fever, shaky Related Data Home Medications ?Medication ?Instructions ?Recorded ?Confirmed ferrous sulfate 325 mg (65 mg 325 mg PO BID 10/02/20 02/19/21 iron) tablet,delayed release multivitamin (Daily Multi-Vitamin 1 tab PO DAILY 10/02/20 02/19/21 tablet) sertraline 100 mg tablet 100 mg PO DAILY 10/02/20 02/19/21 sertraline 50 mg tablet 50 mg PO DAILY 10/02/20 02/19/21 Previous Rx's ?Medication ?Instructions ?Recorded dicyclomine 20 mg tablet 20 mg PO QID PRN abdominal 09/20/20 discomfort #14 tabs peg-electrolyte solution 420 gram 240 ml PO Q10M #4,000 mL 10/02/20 oral solution (TriLyte With Flavor Packets) bisacodyl 5 mg tablet,delayed 10 mg (2 x 5 mg) PO ONCE Bowel 10/03/20 release (Dulcolax (bisacodyl)) Preparation 1 day #2 tabs polyethylene glycol 3350 17 238 g PO ONCE 1 day #238 grams 10/03/20 gram/dose oral powder (Miralax) cyclobenzaprine 10 mg tablet 10 mg PO TID PRN muscle spasm #20 10/16/23 tabs lidocaine 5 % topical patch 1 patch topical DAILY #30 ea 10/16/23 Allergies Allergy/AdvReac Type Severity Reaction Status Date / Time Penicillins [PCN] Allergy Mild RASH Verified 04/17/24 18:35 PMFSH Past Medical History Medical History Family history of DVT Arthritis COVID-19 vaccine series completed Anxiety Depression Surgical History History of endometrial ablation Hx of cholecystectomy Hx of tubal ligation Hx of umbilical hernia repair History of sleeve gastrectomy Social History Social History Are you a primary health care specialist to a significant other at home: No Do you presently have visiting nurse or other home services: No Patient Tobacco Use Status: Never used Tobacco Physical Exam ED Vital Signs: Vital Signs - 24 hr 04/17/24 11:22 04/17/24 16:51 Temperature 98.4 F 98.1 F Pulse Rate 73 61 Respiratory Rate 18 16 Blood Pressure 150/91 H 146/82 H Pulse Oximetry 100 98 Oxygen Delivery Method Room Air Room Air BMI result Body Mass Index 34.6 Course Course Course Narrative: This is a Rapid Medical Examination (RME) performed by Eliecer Preciado PA-C in triage. Full HPI, ROS, assessment and treatment plan per primary provider in the Main ED. 33 yo female here for eval of feeling flush and shaky while at work this morning (approx 1 hour ago). reports having contrast dye a few days ago for scan to evaluate her gastric sleeve and hiatal hernia. reports episode of diarrhea after the scan, otherwise felt fine. no hx of reactions to contrast dye. + well appearing Plan: labs, ekg, viral swabs, UA Reevaluation(s) Reevaluation #1: Patient left the emergency department before myself or any of the other clinicians could review or explain physical exam findings, test results, need or lack there of for additional testing, treatment options, or a treatment plan. Medical Decision Making Lab Data 04/17/24 12:13 04/17/24 12:13 Labs: Lab Results 04/17/24 04/17/24 Range/Units 12:13 12:14 WBC 5.9 (4.8-10.8) X10*3/uL RBC 4.94 (4.20-5.50) X10*6/uL Hgb 14.8 (12.0-16.0) g/dl Hct 42.4 (37.0-47.0) % MCV 85.8 (80.0-98.0) fL MCH 30.0 (27.0-33.0) pg MCHC 34.9 (31.0-35.0) g/dl RDW 12.2 (11.0-16.0) % Plt Count 228 (160-400) X10*3/uL MPV 9.2 L (9.4-12.3) fL Immature Gran % (Auto) 0.3 (0.0-0.4) % Neut % (Auto) 76.5 H (45-73) % Lymph % (Auto) 17.3 L (20-40) % [place] % (Auto) 4.3 (2-11) % Eos % (Auto) 0.9 (0-4) % Baso % (Auto) 0.7 (0-2) % Lymph # (Auto) 1.0 L (1.2-4.9) X10*3/uL [place] # (Auto) 0.3 (0.1-1.2) X10*3/uL Eos # (Auto) 0.1 (0.0-0.4) X10*3/uL Baso # (Auto) 0.0 (0.0-0.2) X10*3/uL Abs Immat Gran (auto) 0.02 (0.00-0.03) X10*3/uL Absolute Neuts (auto) 4.5 (2.0-8.3) x10*3/uL Absolute Nucleated RBC 0.000 (0.0-0.012) X10*3/uL Nucleated RBC % (auto) 0.0 (0.0-0.2) /100WBC Sodium 138 (135-145) mmol/L Potassium 4.0 (3.3-5.1) mmol/L Chloride 107 (96-108) mmol/L Carbon Dioxide 24 (22-29) mmol/L Anion Gap 11 L (12-20) BUN 11 (9-16) mg/dL Creatinine 0.77 (0.5-1.4) mg/dL Estim Creat Clear Calc 128.1 Estimated GFR > 60 Random Glucose 83 (60-115) mg/dL Calcium 9.2 (8.4-10.2) mg/dL Magnesium 2.1 (1.6-2.6) mg/dL Total Bilirubin 0.7 (0.0-1.0) mg/dL AST 20 (5-31) U/L ALT 15 (0-31) U/L Alkaline Phosphatase 37 L (39-117) U/L Troponin I High Sens < 2.7 (<3.5-17.0) ng/L Total Protein 8.3 H (6.5-8.0) g/dL Albumin 4.1 (3.5-5.0) g/dL Lipase 21 (8-78) U/L Urine Color Dark Yellow Urine Appearance Hazy Urine pH 5.5 (5.0-9.0) Ur Specific [place] >= 1.030 H (1.005-1.025) Urine Protein 30 (1+) H (Neg-Trace) mg/dL Urine Glucose (UA) Negative (Negative) mg/dL Urine Ketones Trace (Negative) mg/dL Urine Blood Negative (Negative) Urine Nitrite Negative (Negative) Ur Leukocyte Esterase Small (1+) H (Negative) Urine RBC 0-2 (0-2) /HPF Urine WBC 0-5 (0-5) /HPF Ur Squamous Epith Cells 3-5 (0-2) /HPF Urine Bacteria 4+ (None Seen) Hyaline Casts 0-2 (0-2) /LPF Urine Test NEGATIVE (NEGATIVE) Influenza Type A (PCR) NEGATIVE (Negative) Influenza Type B (PCR) NEGATIVE (Negative) RSV RNA Qual (PCR) NEGATIVE (Negative) SARS-CoV-2 RNA (RT-PCR) NEGATIVE (Negative) Discharge Plan Discharge Clinical Impression: Shaking Patient Disposition: Left W/O Completing Treatment Prescriptions: No Action bisacodyl [Dulcolax (bisacodyl)] 5 mg tablet,delayed release (DR/EC) 10 mg PO ONCE 1 Days Qty: 2 0RF Rx Instructions: Take 2 tablets at 12:00pm the day before your procedure, bowel prep polyethylene glycol 3350 [Miralax] 17 gram/dose powder 238 g PO ONCE 1 Days Qty: 238 0RF Rx Instructions: Take as directed by mouth, bowel prep dicyclomine 20 mg tablet 20 mg PO QID PRN (Reason: abdominal discomfort) Qty: 14 0RF cyclobenzaprine 10 mg tablet 10 mg PO TID PRN (Reason: muscle spasm) Qty: 20 0RF lidocaine 5 % adhesive patch,medicated 1 patch topical DAILY Qty: 30 0RF Rx Instructions: leave on most painful area for up to 12 hrs sertraline 50 mg tablet 50 mg PO DAILY sertraline 100 mg tablet 100 mg PO DAILY ferrous sulfate 325 mg (65 mg iron) tablet,delayed release (DR/EC) 325 mg PO BID multivitamin [Daily Multi-Vitamin] Tablet 1 tab PO DAILY peg-electrolyte soln [TriLyte With Flavor Packets] 420 gram recon soln 240 ml PO Q10M Qty: 4000 0RF Rx Instructions: until fecal effluent is clear; do not exceed a total volume of 2,000 mL Discharge Date/Time: 04/17/24 17:49
--- NOTE | 2024-04-17 11:24 | ECG_ITS ---
Test Reason : SHAKY Blood Pressure : */* mmHG Vent. Rate : 74 BPM Atrial Rate : 74 BPM P-R Int : 140 ms QRS Dur : 80 ms QT Int : 364 ms P-R-T Axes : 46 23 19 degrees QTcB Int : 404 ms Normal sinus rhythm Normal ECG When compared with ECG of 16-Jan-2022 10:35, Vent. rate has increased by 24 bpm Nonspecific T wave abnormality now evident in Anterior leads Referred By: Shima Preciado Electronically Signed By: ALYCIA RICH MD
[2024-04-17 12:20] LABS: MANUAL DIFF FLAG NO
[2024-04-17 12:21] LABS: Basophils Percent Auto 0.7 % (0-2); Eosinophils Absolute Auto 0.1 X10*3/uL (0.0-0.4); Eosinophils Percent Auto 0.9 % (0-4); Hematocrit 42.4 % (37.0-47.0); Hemoglobin 14.8 g/dl (12.0-16.0); Imm Gran Abs Auto 0.02 X10*3/uL (0.00-0.03); Imm Gran Pct Auto 0.3 % (0.0-0.4); Lymphocytes Percent Auto 17.3 % (20-40); Mean Corpuscular HGB Conc 34.9 g/dl (31.0-35.0); Mean Corpuscular Volume 85.8 fL (80.0-98.0); Mean Platelet Volume 9.2 fL (9.4-12.3); Monocytes Absolute Auto 0.3 X10*3/uL (0.1-1.2); Monocytes Percent Auto 4.3 % (2-11); Neutrophils Absolute Auto 4.5 x10*3/uL (2.0-8.3); Neutrophils Percent Auto 76.5 % (45-73); Platelet Count 228 X10*3/uL (160-400); Red Blood Count 4.94 X10*6/uL (4.20-5.50); Red Cell Distribution Width 12.2 % (11.0-16.0); White Blood Count 5.9 X10*3/uL (4.8-10.8)
[2024-04-17 12:23] LABS: UPreg QC Valid YES; Urine Pregnancy NEGATIVE (NEGATIVE)
[2024-04-17 12:29] LABS: Appearance Urine Hazy; Color Urine Dark Yellow; Glucose Urine UA Negative (Negative); Leukocyte Esterase Urine Small (1+) (Negative); Nitrite Urine Negative (Negative); PH 5.5 (5.0-9.0); Specific Gravity - Urine >= 1.030 (1.005-1.025); UMIC TRIGGER UACC YES; Urine Blood Negative (Negative); Urine Ketones Trace mg/dL (Negative); Urine Protein 30 (1+) mg/dL (Neg-Trace)
[2024-04-17 12:30] LABS: Bacteria Urine 4+ (None Seen); Hyaline Casts Urine 0-2 /LPF (0-2); RBC Urine 0-2 /HPF (0-2); UACC Culture Trigger YES; WBC Urine 0-5 /HPF (0-5)
[2024-04-17 12:50] LABS: Alanine Aminotransferase 15 U/L (0-31); Albumin Level 4.1 g/dL (3.5-5.0); Alkaline Phosphatase 37 U/L (39-117); Anion Gap 11 (12-20); Aspartate Amino Transferase 20 U/L (5-31); Bilirubin Total 0.7 mg/dL (0.0-1.0); Blood Urea Nitrogen 11 mg/dL (9-16); Calcium 9.2 mg/dL (8.4-10.2); Carbon Dioxide 24 mmol/L (22-29); Chloride 107 mmol/L (96-108); Creatinine Clr Calc Pharmacy 128.1; Estimated Glomerular Filt Rate > 60; Glucose Random 83 mg/dL (60-115); Lipase 21 U/L (8-78); Magnesium 2.1 mg/dL (1.6-2.6); Sodium 138 mmol/L (135-145); Total Protein 8.3 g/dL (6.5-8.0)
[2024-04-17 13:07] LABS: Troponin-I High Sensitivity < 2.7 ng/L (<3.5-17.0)
[2024-04-17 13:36] LABS: Influenza A PCR NEGATIVE (Negative); Influenza B PCR NEGATIVE (Negative); Resp Syncy Virus RNA Qual PCR NEGATIVE (Negative); SARS COV2 PCR INHOUSE NEGATIVE (Negative)
[2024-04-17 16:51] VITALS: BP 146/82; PULSE 61; RESP 16; TEMP 36.7; O2SAT 98
--- NOTE | 2024-04-17 16:52 | PC.NURSE ---
states she feels less shaky
== END 2024-04-17 17:49 | disposition left against medical advice (07) ==
PROVIDERS: Physician Assistant Medical; Emergency Provider Internal Medicine; PCP Internal Medicine
DX: R50.9 Fever, unspecified (principal); R25.1 Tremor, unspecified; Z79.899 Other long term (current) drug therapy; Z03.818 Encounter for observation for suspected exposure to other biological agents ruled out
CPT/HCPCS: 0241U; 36415; 80053; 81001; 81025; 83690; 83735; 84484; 85025; 87086; 93005; 99283

== ENCOUNTER → 2024-04-17 11:24 | Outpatient (BNV) | payer OTHER, SELFPAY | PROVIDERS: Emergency Provider Internal Medicine; PCP Internal Medicine; Visit Provider Internal Medicine Cardiovascular Disease | DX: F41.0 Panic disorder [episodic paroxysmal anxiety] (principal) | CPT/HCPCS: 93010 ==

== ENCOUNTER 2024-04-17 18:30 | Emergency (ER) | payer OTHER, SELFPAY ==
[2024-04-17 18:33] VITALS: BP 154/75; PULSE 78; RESP 18; TEMP 36.8; O2SAT 100; BMI 34.5
--- NOTE | 2024-04-17 18:34 | ED.GENADULT ---
HPI - General Adult General Chief complaint: General Medical Stated complaint: shaking, ?panic attack Time Seen by Provider: 04/17/24 19:02 Source: patient Mode of arrival: ambulatory Limitations: no limitations History of Present Illness ED Provider: Parisa King PA-C HPI narrative: Patient is a 33 year old assigned female at with al history of anxiety but no panic attacks - presenting to the emergency department today after an episode of feeling shaky, flush, and panicky while at work. 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 Patient states that this has never happened before and she has no history of panic attacks. Patient denies any dizziness, lightheadedness, abdominal pain, nausea, vomiting, fever, chills, blurry vision, double vision, loss of vision, chest pain, difficulty breathing, shortness of breath, back pain, night sweats, pain with urination, increased urinary frequency, increased urinary urgency, blood in her urine or stool, recent trauma or falls, bowel incontinence, bladder incontinence, or any other complaints at this time. Onset (ago): hour(s) Relieving factors: none Exacerbating factors: none Associated symptoms: denies other symptoms Treatments prior to arrival: none Related Data Home Medications ?Medication ?Instructions ?Recorded ?Confirmed ferrous sulfate 325 mg (65 mg 325 mg PO BID 10/02/20 02/19/21 iron) tablet,delayed release multivitamin (Daily Multi-Vitamin 1 tab PO DAILY 10/02/20 02/19/21 tablet) sertraline 100 mg tablet 100 mg PO DAILY 10/02/20 02/19/21 sertraline 50 mg tablet 50 mg PO DAILY 10/02/20 02/19/21 Previous Rx's ?Medication ?Instructions ?Recorded dicyclomine 20 mg tablet 20 mg PO QID PRN abdominal 09/20/20 discomfort #14 tabs peg-electrolyte solution 420 gram 240 ml PO Q10M #4,000 mL 10/02/20 oral solution (TriLyte With Flavor Packets) bisacodyl 5 mg tablet,delayed 10 mg (2 x 5 mg) PO ONCE Bowel 10/03/20 release (Dulcolax (bisacodyl)) Preparation 1 day #2 tabs polyethylene glycol 3350 17 238 g PO ONCE 1 day #238 grams 10/03/20 gram/dose oral powder (Miralax) cyclobenzaprine 10 mg tablet 10 mg PO TID PRN muscle spasm #20 10/16/23 tabs lidocaine 5 % topical patch 1 patch topical DAILY #30 ea 10/16/23 Allergies Allergy/AdvReac Type Severity Reaction Status Date / Time Penicillins [PCN] Allergy Mild RASH Verified 04/17/24 18:35 Review of Systems Constitutional: Constitutional: Reports no additional constitutional complaints, Denies chills, Denies fever(s) and Denies night sweats Eyes: Eyes: Reports no additional eye complaints, Denies blurry vision, Denies change in vision, Denies diplopia, Denies eye discharge, Denies loss of vision and Denies eye pain ENT: Denies dizziness Cardiovascular: Cardiovascular: Reports no additional cardiovascular complaints, Denies chest pain, Denies lightheadedness, Denies Loss of Consciousness and Denies dyspnea Respiratory: Respiratory: Reports no additional respiratory complaints and Denies dyspnea Gastrointestinal: Gastrointestinal: Reports no additional gastrointestinal complaints, Denies abdominal pain, Denies melena, Denies hematochezia, Denies change in bowel habits and Denies change in stool character Genitourinary: Genitourinary: Denies hematuria, Denies urinary frequency, Denies dysuria, Denies urinary incontinence, Denies urinary hesitancy and Denies urinary urgency Musculoskeletal: Musculoskeletal: Reports no additional musculoskeletal complaints, Denies numbness and Denies tingling Neurologic: Denies dizziness, Denies loss of vision, Denies numbness and Denies tingling Comments: shaky panicky Psychiatric: Psychiatric: Reports no additional psychiatric complaints Endocrine: Endocrine: Reports no additional endocrine complaints Hematologic/Lymphatic: Hematologic/Lymphatic: Reports no additional hematologic/lymphatic complaints Allergic/Immunologic: Allergic/Immunologic: Reports no additional allergic/immunologic complaints PMFSH Past Medical History Attestation statement: The following information was validated with the patient. Source: old records reviewed and nursing notes reviewed Medical History Family history of DVT Arthritis COVID-19 vaccine series completed Anxiety Depression Surgical History History of endometrial ablation Hx of cholecystectomy Hx of tubal ligation Hx of umbilical hernia repair History of sleeve gastrectomy Social History Social History Are you a primary child care centre director to a significant other at home: No Do you presently have visiting nurse or other home services: No Patient Tobacco Use Status: Never used Tobacco Advance Directives: No Advance Directives Information Provided: No Physical Exam ED Vital Signs: Vital Signs - 24 hr 04/17/24 18:33 04/17/24 19:44 Temperature 98.3 F 98.3 F Pulse Rate 78 78 Respiratory Rate 18 18 Blood Pressure 154/75 H 154/75 H Pulse Oximetry 100 100 Oxygen Delivery Method Room Air Room Air BMI result Body Mass Index 34.5 Const General: cooperative, no acute distress, alert and awake Nutritional Appearance: well nourished Orientation/consciousness: patient oriented x3 Limitations: no limitations HENMT Head: Yes normal to inspection and Yes atraumatic Ears: hearing grossly normal bilaterally and external ears normal General nose exam: Normal external nose present, no nasal discharge noted and no epistaxis Face and sinus: Yes normal facial exam, No abrasion and No laceration Mouth: Normal oral and palatal mucosa present, no drooling and no muffled voice Teeth and gingiva: other (patient has teeth missing - chronically, not new.) Eyes General: appearance normal, both eyes and all related structures Periorbital: periorbital findings normal Eyelids: Yes eyelids normal Conjunctivae: conjunctivae normal Pupils: Equal, round and reactive pupils present EOM: EOMs intact bilaterally Neck Neck: Yes normal visual inspection, Yes full ROM and Yes no lymphadenopathy Chest Chest palpation & inspection: normal inspection of the chest Resp Effort & Inspection: normal respiratory effort and able to speak in complete sentences GI Inspection: Yes normal to inspection Neuro General: patient oriented x3 and moves all extremities Cranial nerves: Yes Equal, round and reactive pupils present Cognition (Neuro): normal cognition Extrem General: Yes normal to inspection, Yes full ROM and Yes capillary refill normal Psych Appearance: grossly normal Mental Status: mental status grossly normal Affect: normal affect Attitude: cooperative Thought process: Normal thought process present Thought content: Normal thought content present Insight: Good insight present (Psych) Course Course Course Narrative: This is a Rapid Medical Examination (RME) performed by Eliecer Preciado PA-C in triage. Full HPI, ROS, assessment and treatment plan per primary provider in the Main ED. 33 yo female here for eval of feeling flush and shaky while at work this morning (approx 1 hour ago). reports having contrast dye a few days ago for scan to evaluate her gastric sleeve and hiatal hernia. reports episode of diarrhea after the scan, otherwise felt fine. no hx of reactions to contrast dye. + well appearing Plan: labs, ekg, viral swabs, UA Medical Decision Making Medical Decision Making MDM Narrative: Patient is a 33 year old assigned female at with al history of anxiety but no panic attacks - presenting to the emergency department today after an episode of feeling shaky, flush, and panicky while at work. Patient's physical exam was unremarkable. Patient's blood work was unremarkable. Patient's urine showed a possible UTI however, the patient's current complaints are not consistent with a UTI. Patient states that she has issues with an overactive bladder for which she is scheduled to follow up with a urologist. Patient's EKG was unremarkable. I explained my physical exam findings as well as all test results to the patient. I answered all questions asked by the patient. Patient stated that her symptoms resolved entirely while in the waiting room. I explained to the patient that if her urine culture were to be positive - we would call her with the results and electronically send an antibiotic in. I stressed the importance of the patient taking her medication as directed (either prescribed or as the over the counter packaging recommends). I stressed the importance of the patient following up with her primary care provider and her urologist as scheduled. I stressed the importance of the patient returning to the emergency department immediately if her symptoms were to worsen or if she were to develop any dizziness, shortness of breath, difficulty breathing, chest pain, blurry vision, loss of vision, nausea, vomiting, abdominal pain, fever, chills, back pain, or any other complaints. Patient verbalized agreement and understanding with this treatment plan and discharge. Differential Diagnosis Differential Diagnoses: The differential diagnosis associated with the presentation includes Near syncope Panic attack Vasovagal syncope Admission/Observation Consideration of admission/observation: Escalation of care including admission/observation considered Patient would have been admitted to the hospital had her work up had any findings where hospital admission was appropriate and her clinical presentation warranted hospital admission. Independent Interpretation I performed an independent interpretation of an: EKG Interpretation: Vent. Rate: 74 BPM Atrial Rate: 74 BPM P-R Int: 140 ms QRS Dur: 80 ms QT Int: 364 ms P-R-T Axes: 46 23 19 degrees QTcB Int: 404 ms Normal sinus rhythm Normal ECG When compared with ECG of 16-Jan-2022 10:35, Vent. rate has increased by 24 bpm Nonspecific T wave abnormality now evident in Anterior leads DD/ [id number] Discharge Plan Discharge Clinical Impression: Near syncope Patient Disposition: Home, Self-Care Instructions: Near Syncope (ED) Additional Instructions: Your labs were unremarkable. Your urine showed a possible infection however - your symptoms were not consistent with an infection. Will wait for culture to grow and call you to start ABX if necessary. Follow up with your primary care provider. Return to the emergency department immediately if your symptoms worsen or if you develop any dizziness, shortness of breath, difficulty breathing, chest pain, blurry vision, loss of vision, nausea, vomiting, abdominal pain, fever, chills, back pain, or any other complaints. Prescriptions: No Action bisacodyl [Dulcolax (bisacodyl)] 5 mg tablet,delayed release (DR/EC) 10 mg PO ONCE 1 Days Qty: 2 0RF Rx Instructions: Take 2 tablets at 12:00pm the day before your procedure, bowel prep polyethylene glycol 3350 [Miralax] 17 gram/dose powder 238 g PO ONCE 1 Days Qty: 238 0RF Rx Instructions: Take as directed by mouth, bowel prep dicyclomine 20 mg tablet 20 mg PO QID PRN (Reason: abdominal discomfort) Qty: 14 0RF cyclobenzaprine 10 mg tablet 10 mg PO TID PRN (Reason: muscle spasm) Qty: 20 0RF lidocaine 5 % adhesive patch,medicated 1 patch topical DAILY Qty: 30 0RF Rx Instructions: leave on most painful area for up to 12 hrs sertraline 50 mg tablet 50 mg PO DAILY sertraline 100 mg tablet 100 mg PO DAILY ferrous sulfate 325 mg (65 mg iron) tablet,delayed release (DR/EC) 325 mg PO BID multivitamin [Daily Multi-Vitamin] Tablet 1 tab PO DAILY peg-electrolyte soln [TriLyte With Flavor Packets] 420 gram recon soln 240 ml PO Q10M Qty: 4000 0RF Rx Instructions: until fecal effluent is clear; do not exceed a total volume of 2,000 mL Referrals: Mugg,Derek, MD [Primary Care Provider] - Stand Alone Forms: Work/School Release Interventions: ED Discharge Assessment Last Done: 04/17/24 19:44 Discharge Date/Time: 04/17/24 19:44 Print Language: Fijian
[2024-04-17 19:44] VITALS: BP 154/75; PULSE 78; RESP 18; TEMP 36.8; O2SAT 100
== END 2024-04-17 19:44 | disposition home or self-care (01) ==
PROVIDERS: Emergency Provider Internal Medicine; PCP Internal Medicine
DX: R55 Syncope and collapse (principal); Z79.899 Other long term (current) drug therapy
CPT/HCPCS: 99282

== ENCOUNTER 2024-05-04 10:59 | Outpatient (REF) | payer OTHER, SELFPAY ==
[2024-05-04 11:11] LABS: MANUAL DIFF FLAG NO
[2024-05-04 11:53] LABS: Basophils Percent Auto 0.3 % (0-2); Eosinophils Absolute Auto 0.1 X10*3/uL (0.0-0.4); Eosinophils Percent Auto 2.3 % (0-4); Hematocrit 41.9 % (37.0-47.0); Hemoglobin 14.6 g/dl (12.0-16.0); Imm Gran Abs Auto 0.01 X10*3/uL (0.00-0.03); Imm Gran Pct Auto 0.3 % (0.0-0.4); Lymphocytes Absolute Auto 0.4 X10*3/uL (1.2-4.9); Lymphocytes Percent Auto 11.1 % (20-40); Mean Corpuscular HGB Conc 34.8 g/dl (31.0-35.0); Mean Corpuscular Hemoglobin 30.2 pg (27.0-33.0); Mean Corpuscular Volume 86.6 fL (80.0-98.0); Mean Platelet Volume 9.6 fL (9.4-12.3); Monocytes Absolute Auto 0.1 X10*3/uL (0.1-1.2); Monocytes Percent Auto 4.1 % (2-11); Neutrophils Absolute Auto 2.8 x10*3/uL (2.0-8.3); Neutrophils Percent Auto 81.9 % (45-73); Platelet Count 184 X10*3/uL (160-400); Red Blood Count 4.84 X10*6/uL (4.20-5.50); Red Cell Distribution Width 12.3 % (11.0-16.0); White Blood Count 3.4 X10*3/uL (4.8-10.8)
--- OUTSIDE RECORDS SUMMARY | 2024-05-04 12:19 | XMS_ITS | Clinical Summary ---
Author Organization [address] Address [address] [place] [address] Phone Care Team Providers Care Planetarium Sky Show Technician Name Role Phone Karly Quinones MD Primary Care Provider Encounters Date Type Department Care Team Description 04/05/2024 Lab Requisition [facility] [address] [place] [phone] Corbin Barrios MD Cervical high risk human papillomavirus (HPV) DNA test positive; Atypical squamous cells of undetermined significance on cytologic smear of anus (ASC-US) 03/08/2024 Lab Requisition [facility] Lab [address] [place] [phone] Corbin Barrios MD Encounter for gynecological examination (general) (routine) without abnormal findings from Last 3 Months Surgical History Surgery Date Site/Laterality Comments CHOLECYSTECTOMY 08/07 PROCEDURE: HISTORICAL CHOLECYSTECTOMY Medical History Medical History Date Comments Obesity DX:Obesity Family History Medical History Relation Name Comments Other: pulmonary emboli Brother 1 Heart attack Father Other: DVT Father Coumadin RX Colon cancer Maternal Grandfather Lung cancer Maternal Grandfather Diabetes Maternal Grandmother Other cancer Maternal Grandmother Bladder Diabetes Mother Hypertension Mother Relation Name Status Comments Brother 1 Brother 2 Alive Daughter Alive Father Alive Maternal Grandfather Maternal Grandmother Alive Mother Alive Paternal Grandfather Alive Paternal Grandmother Alive Sister Alive Son Alive Social History Tobacco Use Types Packs/Day Years Used Date Smoking Tobacco: Never Smokeless Tobacco: Never Alcohol Use Standard Drinks/Week Comments No 0 (1 standard drink = 0.6 oz pur e alcohol) Sex and Gender Information Value Date Recorded Sex Assigned at Not on file Gender Identity Not on file Sexual Orientation Not on file Obstetrics History Plan of Treatment Health Maintenance Due Date Last Done Comments Hepatitis B Vaccines (1 of 3 - 19+ 3-dose series) 05/31/2007 DTaP,Tdap,and Td Vaccines (2 - Td or Tdap) 06/05/2021 06/06/2011 Cholesterol Screening (Lipid Panel) 03/02/2022 Depression Screening 03/02/2022 HIV Screening 03/02/2022 Hepatitis C Screening 03/02/2022 Social Influencers of Health Screening 03/02/2022 COVID-19 Vaccine (2023-2 5 season) 2023 Influenza Vaccine (#1) 2023 2, 12/12/2010 Cervical Cancer Screening: HPV 03/07/2029 1 05/08/2023, 03/07/2024 HIB Vaccines Aged Out No longer eligi ble based on patient's age to complete this topic HPV Vaccines Aged Out No longer eligi ble based on patient's age to complete this topic Hepatitis A Vaccines Aged Out No long er eligible based on patient's age to complete this topic IPV Vaccines Aged Out No longer eligi ble based on patient's age to complete this topic MMR Vaccines Aged Out No longer eligi ble based on patient's age to complete this topic Meningococcal ACWY Vaccine Aged Out N o longer eligible based on patient's age to complete this topic Pneumococcal Vaccine: Pediatrics (0 to 5 Years) and At-Risk Patients (6 to 64 Years) Aged Out No longer eligible b ased on patient's age to complete this topic RSV Immunization Patients Under 20 months Aged Out No longer eligible b ased on patient's age to complete this topic Varicella Vaccines Aged Out No longer eligible based on patient's age to complete this topic Procedures Procedure Name Priority Date/Time Associated Diagnosis Comments TISSUE EXAM Routine 04/04/2024 Cervical high risk human papillomavirus (HPV) DNA test positive Atypical squamous cells of undetermined significance on cytologic smear of anus (ASC-US) PAP SMEAR Routine 03/07/2024 12:00 AM EST Encounter for gynecological examination (general) (routine) without abnormal findings HPV GENOTYPE Routine 03/07/2024 12:00 AM EST Encounter for gynecological examination (general) (routine) without abnormal findings HPV WITH REFLEX GENOTYPE Routine 03/07/2024 12:00 AM EST Encounter for gynecological examination (general) (routine) without abnormal findings from Last 3 Months Results * Tissue Exam (04/04/2024) Final Diagnosis Endocervical curettings: Benign endocervical mucosa with chronic inflammation Benign squamous epithelium No squamous intraepithelial lesion or glandular neoplasm identified on deeper levels 2:55 PM [facility] Clinical Information 03/22 ASCUS HPV+ 2:55 PM [facility] Gross Description A. Endocervix, curettings: Labeled with the patient's name and information. Received in formalin is a 1.2 cm aggregate of irregular red-brown soft tissue fragments admixed with mucoid substance, which is submitted in toto in a mesh bag in one cassette, multiple pieces, x 2. MERYL 2:55 PM [facility] Special Stains Because of some glandular architectural disarray and the patient's high-risk HPV status, p16 stain with appropriate controls is performed. No strong block-like or confluent staining is present supporting the above diagnosis. 2:55 PM [facility] Disclaimer NOTE: The immunohistochemical tests and in situ hybridization tests were developed and their performance characteristics were determined by [facility]. They have not been cleared or approved by the U.S. Food and Drug Administration. The FDA has determined that such clearance or approval is not necessary. These tests are used for clinical purposes. They should not be regarded as investigational or for research. This laboratory is certified under the Clinical Laboratory Improvement Amendments of 1988 (CLIA) as qualified to perform high complexity clinical laboratory testing. (controls appropriate) Unless otherwise specified, all tissue is 10% NB formalin fixed and paraffin embedded. 2:55 PM [facility] Tissue Endocervical structure / Unknown 04/04/2024 04/05/2024 9:57 AM EST Corbin Barrios MD LAB PATHOLOGY ORDERA BLES Performing Organization Address City[facility]/ZIP Co de Phone Number [facility] [address] [place] [address], [place] [phone] * HPV genotype (03/07/2024 12:00 AM EST) HPV Type 16 Negative Negative LAB MICROBIOLOGY METHOD 03/15/2024 1:[address] [facility] HPV Type 18/45 Negative Negative LAB MICROBIOLOGY METHOD 03/15/2024 1:[address] [facility] HPV Type 16,18, and others Valid LAB MICROBIOLOGY METHOD 03/15/2024 1:[address] [facility] Brushing/Spatula Cervix uteri structure / Unknown 03/07/2024 03/11/2024 4:07 PM EST Corbin Barrios MD LAB MOLECULAR DIAGNO STICS ORDERABLES Performing Organization Address City/[facility]/ZIP Co de Phone Number [facility] [address] [place] [address], [place] [phone] * (ABNORMAL) HPV with reflex genotype (03/07/2024 12:00 AM EST) HPV Positive( A) Negative LAB MICROBIOLOGY METHOD 03/14/2024 3:[address] [facility] Brushing/Spatula Cervix uteri structure / Unknown 03/07/2024 03/11/2024 4:07 PM EST Corbin Barrios MD LAB MOLECULAR DIAGNO STICS ORDERABLES [facility] [address] [place] [address], [place] [phone] * (ABNORMAL) Pap smear (03/07/2024 12:00 AM EST) Interpretation Atypical squamous cells of undetermined significance(A) 03/11/2024 4:[address] [facility] Clinical Information History of LSIL 2018 and 2019 on pap. No pap since in the system. 03/11/2024 4:[address] [facility] General Categorization Epithelial cell abnormality, see interpretation 03/11/2024 4:[address] [facility] Other Findings Shift in mallika suggestive of bacterial vaginosis 03/11/2024 4:08 PM [facility] Specimen Adequacy Satisfactory for evaluation, endocervical/tra nsformation zone component absent 03/11/2024 4:08 PM [facility] Pap Methodology Liquid Based Pap Test 03/11/2024 4:[address] [facility] Disclaimer The Pap test is a screening test which carries an inherent false negative rate. These test results should be correlated with the patient's clinical findings and history. This Pap test was processed using an automated screening system. Technical cytopathology services provided by [facility], at [address] [place] [id number] (CLIA # [id number]/Roz Fairchild MD, Supervisor Smoke Control.) 03/11/2024 4:[address] [facility] Console Pap Interpretation Reported 03/11/2024 4:08 PM [facility] Brushing/Spatula Cervix uteri structure / Unknown 03/07/2024 03/08/2024 8:30 AM EST Corbin Barrios MD LAB CYTOLOGY ORDERAB LES [facility] [address] [place] [address], from Last 3 Months Care Teams Planetarium Sky Show Technician Relationship Specialty Start Date End Date Karly Quinones MD [address] [place] [phone] PCP - General Internal Medicine 06/21/18
--- OUTSIDE RECORDS SUMMARY | 2024-05-04 12:19 | XMS_ITS | Encounter Summary ---
Author Organization [facility] Address [address] [place] [phone] Care Team Providers Care Report Checker Name Role Phone Karly Quinones MD Primary Care Provider Encounter Details Date Type Department Care Team (Latest Contact Info) Description 04/05/2024 Lab Requisition [facility] [address] [facility] [place] [phone] Corbin Barrios MD [address] [phone] Cervical high risk human papillomavirus (HPV) DNA test positive; Atypical squamous cells of undetermined significance on cytologic smear of anus (ASC-US) Social History Tobacco Use Types Packs/Day Years Used Date Smoking Tobacco: Never Smokeless Tobacco: Never Alcohol Use Standard Drinks/Week Comments No 0 (1 standard drink = 0.6 oz pur e alcohol) Sex and Gender Information Value Date Recorded Sex Assigned at Not on file Gender Identity Not on file Sexual Orientation Not on file documented as of this encounter Plan of Treatment Not on file documented as of this encounter Procedures Procedure Name Priority Date/Time Associated Diagnosis Comments TISSUE EXAM Routine 04/04/2024 Cervical high risk human papillomavirus (HPV) DNA test positive Atypical squamous cells of undetermined significance on cytologic smear of anus (ASC-US) documented in this encounter Results * Tissue Exam (04/04/2024) Final Diagnosis Endocervical curettings: Benign endocervical mucosa with chronic inflammation Benign squamous epithelium No squamous intraepithelial lesion or glandular neoplasm identified on deeper levels 2:55 PM EST [facility] Clinical Information 03/22 ASCUS HPV+ 2:55 PM EST [facility] Gross Description A. Endocervix, curettings: Labeled with the patient's name and information. Received in formalin is a 1.2 cm aggregate of irregular red-brown soft tissue fragments admixed with mucoid substance, which is submitted in toto in a mesh bag in one cassette, multiple pieces, x 2. MERYL 2:55 PM EST [facility] Special Stains Because of some glandular architectural disarray and the patient's high-risk HPV status, p16 stain with appropriate controls is performed. No strong block-like or confluent staining is present supporting the above diagnosis. 2:55 PM EST [facility] Disclaimer NOTE: The immunohistochemical tests and in situ hybridization tests were developed and their performance characteristics were determined by [facility]. They have not been cleared [...] formalin fixed and paraffin embedded. 2:55 PM EST [facility] Tissue Endocervical structure / Unknown 04/04/2024 04/05/2024 9:57 AM EST Corbin Barrios MD LAB PATHOLOGY ORDERA VIKRAMS [facility] [address] [place] [address], documented in this encounter Visit Diagnoses Diagnosis Cervical high risk human papillomavirus (HPV) DNA test positive Atypical squamous cells of undetermined significance on cytologic smear of anus (ASC-US) documented in this encounter Care Teams Report Checker Relationship Specialty Start Date End Date Swapnil-Valdo, Karly, MD [address] [place] [address] PCP - General Internal Medicine 06/21/18 documented as of this encounter
--- OUTSIDE RECORDS SUMMARY | 2024-05-04 12:19 | XMS_ITS | Encounter Summary ---
Author Organization [facility] Address [address] [place] [phone] Care Team Providers Care Prop Worker Name Role Phone Karly Quinones MD Primary Care Provider Encounter Details Date Type Department Care Team (Latest Contact Info) Description 03/08/[address] [facility] [address] [facility] [place] [phone] Corbin Barrios MD 299 [facility] [address] [place] [phone] Encounter for gynecological examination (general) (routine) without abnormal findings Social History Tobacco Use Types Packs/Day Years [...] Procedure Name Priority Date/Time Associated Diagnosis Comments HPV GENOTYPE Routine 03/07/2024 12:00 AM EST Encounter for gynecological examination (general) (routine) without abnormal findings HPV WITH REFLEX GENOTYPE Routine 03/07/2024 12:00 AM EST Encounter for gynecological examination (general) (routine) without abnormal findings PAP SMEAR Routine 03/07/2024 12:00 AM EST Encounter for gynecological examination (general) (routine) without abnormal findings documented in this encounter Results * HPV genotype (03/07/2024 12:00 AM EST) HPV Type 16 Negative Negative LAB MICROBIOLOGY METHOD 03/15/2024 1:18 PM EST [facility] HPV Type 18/45 Negative Negative LAB MICROBIOLOGY METHOD 03/15/2024 1:18 PM EST [facility] HPV Type 16,18, and others Valid LAB MICROBIOLOGY METHOD 03/15/2024 1:18 PM EST [facility] Brushing/Spatula Cervix uteri structure / Unknown 03/07/2024 03/11/2024 4:07 PM EST Corbin Barrios MD LAB MOLECULAR DIAGNO STICS ORDERABLES [facility] [address] [place] [address], [place] [phone] * (ABNORMAL) HPV with reflex genotype (03/07/2024 12:00 AM EST) HPV Positive( A) Negative LAB MICROBIOLOGY METHOD 03/14/2024 3:13 PM EST [facility] Brushing/Spatula Cervix uteri structure / Unknown 03/07/2024 03/11/2024 4:07 PM EST Corbin Barrios MD LAB MOLECULAR DIAGNO STICS ORDERABLES [facility] [address] [place] [address], [place] [phone] * (ABNORMAL) Pap smear (03/07/2024 12:00 AM EST) Interpretation Atypical squamous cells of undetermined significance(A) 03/11/2024 4:08 PM EST [facility] Clinical Information History of LSIL 2018 and 2019 on pap. No pap since in the system. 03/11/2024 4:08 PM EST [facility] General Categorization Epithelial cell abnormality, see interpretation 03/11/2024 4:08 PM [facility] Other Findings Shift in mallika suggestive of bacterial vaginosis 03/11/2024 4:08 PM [facility] Specimen Adequacy Satisfactory for evaluation, endocervical/tra nsformation zone component absent 03/11/2024 4:08 PM [facility] Pap Methodology Liquid Based Pap Test 03/11/2024 4:08 PM [facility] Disclaimer The Pap test is a screening test which carries an inherent false negative rate. These test results should be correlated with the patient's clinical findings and history. This Pap test was processed using an automated screening system. Technical cytopathology services provided by [facility], at [address] [place] [id number] (CLIA # [id number]/Roz Fairchild MD, French Polisher.) 03/11/2024 4:08 PM [facility] Console Pap Interpretation Reported 03/11/2024 4:08 PM [facility] Brushing/Spatula Cervix uteri structure / Unknown 03/07/2024 03/08/2024 8:30 AM EST Corbin Barrios MD LAB CYTOLOGY ORDERAB LES [facility] [address] [place] [address], documented in this encounter Visit Diagnoses Diagnosis Encounter for gynecological examination (general) (routine) without abnormal findings documented in this encounter Care Teams Prop Worker Relationship Specialty Start Date End Date Karly Quinones MD [address] [place] [phone] PCP - General Internal Medicine 06/21/18 documented as of this encounter
[2024-05-04 12:39] LABS: Alanine Aminotransferase 13 U/L (0-31); Albumin Level 4.1 g/dL (3.5-5.0); Alkaline Phosphatase 30 U/L (39-117); Anion Gap 8 (12-20); Aspartate Amino Transferase 21 U/L (5-31); Blood Urea Nitrogen 8 mg/dL (9-16); Calcium 9.1 mg/dL (8.4-10.2); Carbon Dioxide 28 mmol/L (22-29); Chloride 105 mmol/L (96-108); Cholesterol 137 mg/dL (<200); Estimated Glomerular Filt Rate > 60; Glucose Fasting 100 mg/dL (60-99); HDL Cholesterol 54 mg/dL (>40); LDL Cholesterol Calculated 72 mg/dL (<100); Potassium 3.8 mmol/L (3.3-5.1); Sodium 137 mmol/L (135-145); Total Protein 7.8 g/dL (6.5-8.0); Triglycerides 57 mg/dL (<150)
[2024-05-04 12:41] LABS: Free T4 (Free Thyroxine) 0.93 ng/dL (0.71-1.85); Thyroid Stimulating Hormone 2.69 uIU/mL (0.32-4.0)
== END 2024-05-04 11:00 | disposition home or self-care (01) ==
LOC: HO.LAB 10:59
PROVIDERS: PCP Internal Medicine; Visit Provider Internal Medicine
DX: Z00.00 Encounter for general adult medical examination without abnormal findings (principal); R53.83 Other fatigue; E78.5 Hyperlipidemia, unspecified
CPT/HCPCS: 36415; 80053; 80061; 84439; 84443; 85025